=== PATIENT | male | born 1985 | race Caucasian/White ===

== ENCOUNTER 2020-07-17 19:59 | Inpatient (IN) | payer OTHER ==
[~2020-07-17] VITALS: Ht 177.8 cm; Wt 111.1 kg
== END 2020-07-21 19:10 | disposition home or self-care (01) | DRG 446 ==
LOC: ER 19:59 → SURH 07-18 09:19
PROVIDERS: ADMIT Surgery; ATTEND Surgery
PROC: BW40ZZZ Ultrasonography of Abdomen (ICD-10-PCS; 2020-07-18)
PROC: CD271ZZ Tomographic (Tomo) Nuclear Medicine Imaging of Gastrointestinal Tract using Technetium 99m (Tc-99m) (ICD-10-PCS; principal; 2020-07-19)
PROC: 3E0F7SF Introduction of Other Gas into Respiratory Tract, Via Natural or Artificial Opening (ICD-10-PCS; 2020-07-19)
DX: K80.00 Calculus of gallbladder with acute cholecystitis without obstruction (principal); E86.0 Dehydration; Z20.828 Contact with and (suspected) exposure to other viral communicable diseases